=== PATIENT | male | born 1955 | race Caucasian/White ===

== ENCOUNTER 2016-12-29 07:51 | Day surgery (SDC) | payer BC ==
[2016-12-29 10:23] VITALS: BP 127/81; PULSE 68; RESP 20; TEMP 97.2; O2SAT 95
== END 2016-12-29 10:35 | disposition home or self-care (01) ==
LOC: SURG 07:51
PROVIDERS: ATTEND Surgery
DX: Z12.11 Encounter for screening for malignant neoplasm of colon (principal); D12.2 Benign neoplasm of ascending colon; D12.3 Benign neoplasm of transverse colon
CPT/HCPCS: 45385; 99001; J2001; J2704